=== PATIENT | female | born 1995 | race African-American/Black ===

== ENCOUNTER 2017-04-18 12:12 | Emergency (ER) | payer MEDICAID ==
[~2017-04-18] VITALS: Ht 165.1 cm; Wt 91.5 kg
[2017-04-18 12:17] VITALS: BP 132/72
[2017-04-18] MEDS ORDERED: HYDROCODONE/ACETAMINOPHEN 5-325 MG TABLET PO ONE (12:45)
== END 2017-04-18 13:07 | disposition home or self-care (01) ==
LOC: EMS 12:15
DX: K02.9 Dental caries, unspecified (principal)
CPT/HCPCS: 99283

== ENCOUNTER 2019-02-18 17:14 | Emergency (ER) | payer MEDICAID ==
[~2019-02-18] VITALS: Ht 165.1 cm; Wt 84.1 kg
[2019-02-18 17:19] VITALS: BP 130/72
== END 2019-02-18 18:44 | disposition left against medical advice (07) ==
LOC: EMS 17:14
DX: H57.89 Other specified disorders of eye and adnexa (principal)